=== PATIENT | male | born 1940 | race Caucasian/White ===

== ENCOUNTER → 2018-02-19 | Day surgery (SDC) | payer MEDICARE, OTHER ==
[2018-02-07 13:05] LABS: BASOPHILS # (AUTO) 0.1 (0.0-0.1); EOSINOPHILS # (AUTO) 0.3 (0.0-0.4); EOSINOPHILS % 5.4 % (0.0-6.0); HEMOGLOBIN 13.7 g/dL (14.0-18.0); LYMPHOCYTES # (AUTO) 1.6 (1.0-3.2); LYMPHOCYTES % 31.1 % (18.0-39.1); MEAN CORPUSCULAR HEMOGLOBIN 31.9 pg (28-32); MEAN CORPUSCULAR HGB CONC 33.4 g/dL (31-35); MEAN CORPUSCULAR VOLUME 95.3 fL (81-99); MONOCYTES # (AUTO) 0.6 (0.2-0.8); NEUTROPHILS # (AUTO) 2.6 (2.1-6.9); NEUTROPHILS % 51.3 % (38.7-80.0); PLATELET COUNT 157 x10e3/uL (140-360)
--- NOTE | 2018-02-07 13:26 | Diagnostic Imaging Report ---
EXAMINATION: PA and lateral views of the chest. COMPARISON: None CLINICAL HISTORY: Preoperative study for right inguinal hernia repair DISCUSSION: The lungs are well expanded. Linear opacity in the left lung base compatible with scar or subsegmental atelectasis. No consolidation, pleural effusion, or pneumothorax. Cardiomediastinal contour is notable for coronary artery stent. Normal heart size. No pulmonary edema. No acute osseous abnormality. IMPRESSION: No acute cardiopulmonary abnormality. Signed by: Dr. Mt Oleary M.D. on 02/07/2018 1:23 PM
[2018-02-07 13:33] LABS: ALBUMIN 3.8 g/dL (3.5-5.0); ALBUMIN/GLOBULIN RATIO 1.2 (0.8-2.0); ANION GAP 12.1 mmol/L (8-16); CALCIUM 9.7 mg/dL (8.4-10.2); CREATININE, SERUM 1.7 mg/dL (0.72-1.25); POTASSIUM 4.1 mmol/L (3.5-5.1)
[~2018-02-19] MED LIST: ACETAMINOPHEN 1000 MG/100 ML IV ONE; ALLOPURINOL300 MG PO; ARMOUR THYROID60 MG PO; ASPIR 8181 MG PO; BUPIVACAINE HCL 0.5% INJ 30 ML VIAL INJ ONE; CEFAZOLIN SOD 1 GM VIAL ONE; CRANBERRY500 MG PO; DEXAMETHASONE SOD PHOS INJ 4 MG/ML VIAL ONE; FENTANYL CITRATE/PF 100MCG/2 ML INJ ONE; FISH OIL 1,0001 EAC2 PO; FOLIC ACID PO; GLUCOTEN CAPLE1 EACH PO; IBUPROFEN200 MG PO; INDOMETHACIN25 MG PO; LIDOCAINE HCL 2% LOCAL INJ 5 ML SDV VIAL INJ ONE; ONDANSETRON HCL INJ 2 MG/ML VIAL ONE; POTASSIUM GLUCO99 M1 PO; PROPOFOL IV EMULSION 10 MG/ML 20 ML VIAL ONE; SAW PALMETTO450 MG PO; SEVOFLURANE INHAL SOLN 250 ML PEN BTL ONE; VIT C PO; VIT E PO
--- OUTSIDE RECORDS SUMMARY | 2018-02-19 14:46 | XMS REPORT ---
Author Author [facility] Address Unknown Phone Unavailable Care Team Providers Care Immigration Coordinator Name Role Phone Gee MCKEON Unavailable Unavailable Kassi Fletcher Unavailable Unavailable Problems This patient has no known problems. Allergies, Adverse Reactions, Alerts This patient has no known allergies or adverse reactions. Medications This patient has no known medications. Results Test Description Test Time Test Comments Text Results Atomic Results Result Comments CHEST 2 VIEWS 2018-02-07 13:20:00 [place] [address] Patient Name: CORAL LICEA JR MR #: [id number] : 1940 Age/Sex: 77/M [id number] Req #: [id number] Adm Physician: Ordered by: GARRETT MCKEON MD Report #: [id number] Location: OR Room/Bed: Procedure: [id number] DX/CHEST 2 VIEWS Exam Date: Exam Time: REPORT STATUS: Signed EXAMINATION: PA and lateral views of the chest. COMPARISON: None CLINICAL HISTORY: Preoperative study for right inguinal hernia repair DISCUSSION: The lungs are well expanded. Linear opacity in the left lung base compatible with scar or subsegmental atelectasis. No consolidation, pleural effusion, or pneumothorax. Cardiomediastinal contour is notable for coronary artery stent. Normal heart size. No pulmonary edema. No acute osseous abnormality. IMPRESSION: No acute cardiopulmonary abnormality. Signed by: Dr. Garrett Mar M.D. on 02/07/2018 1:23 PM Dictated By: GARRETT MAR MD 22 Transcribed By: MAXIMO on 02/07/181322 COPY TO: GARRETT MCKEON MD Chemistry - Specials 2016-10-26 16:21:00 Chemistry - Specials (test code=FT4) 0.76 ng/dL 0.70-1.48 @Verify Order - A T4 or FT4 [id number] - [id number] 16:21:00* Test Item Value Reference Range Comments Chemistry - Specials (test code=TSH3) 1.1200 uIU/mL 0.35-4.94 @Verify Order - A T4 or FT4 [id number] - [id number] 13:00:00* Test Item Value Reference Range Comments Chemistry - Specials (test code=FT4) 0.64 ng/dL 0.70-1.48 @Verify Order - A T4 or FT4 [id number] - [id number] 13:00:00* Test Item Value Reference Range Comments Chemistry - Specials (test code=TSH3) 6.8471 uIU/mL 0.35-4.94 @Verify Order - A T4 or FT4 [id number] 12:44:00* Test Item Value Reference Range Comments Chemistry (test code=NA-T) 142 mmol/L 136-145 Chemistry (test code=K-T) 4.3 mmol/L 3.5-5.1 Chemistry (test code=CL) 106 mmol/L 98-107 Chemistry (test code=CO2) 28 mmol/L 23-31 Chemistry (test code=ANGP) 12 mmol/L 10-20 Chemistry (test code=BUN) 26 mg/dL 8.4-25.7 Chemistry (test code=CREATT) 1.69 mg/dL 0.7-1.3 Chemistry (test code=EGFRMDRD) 40 Reference Range for Estimated GFR: Greater than 90 mL/min/1.73 m2NOTE:The MDRD equation has not been validated for use with theelderly (over 70 years of age), women, patien tswith serious comorbid condition or persons with extremes ofbody size, muscle mass, or nutritional status. Chemistry (test code=GLU-T) 90 mg/dL 83-110 Chemistry (test code=CA) 9.4 mg/dL 7.8-10.44 Chemistry (test code=TBILI) 0.8 mg/dL 0.2-1.2 Chemistry (test code=TP) 6.9 g/dL 5.8-8.1 NOTE: Plasma values are generally 0.3 to 0.5 g/dL higherthan serum values due to the presence of fibrinogen. Chemistry (test code=ALB) 3.9 g/dL 3.4-4.8 Chemistry (test code=GLOB) 3.0 g/dL 2.4-3.5 Chemistry (test code=AG) 1.3 g/dL 1.2-2.2 Chemistry (test code=ALP) 126 U/L 40-150 Chemistry (test code=AST) 23 U/L 5-34 Chemistry (test code=ALT) 17 U/L 0-55
--- NOTE | 2018-02-19 15:25 | Operative Report ---
DATE OF PROCEDURE: February 19, 2018 PREOPERATIVE DIAGNOSIS: Right inguinal hernia. POSTOPERATIVE DIAGNOSIS: Direct right inguinal hernia. OPERATIVE PROCEDURE: Repair of right inguinal hernia with mesh. ANESTHESIA: General. INDICATIONS: This is a 77-year-old male with chronic history of enlarging right inguinal hernia with frequent incarceration requiring manual reduction. Patient had consented for repair of right inguinal hernia with all attendant risks discussed. PROCEDURE FINDINGS: Large direct inguinal hernia sac with omentum and intestine incarceration. DESCRIPTION OF PROCEDURE: The patient was brought to the OR and intubated. Abdomen was prepped with alcohol and draped in a sterile fashion. A right inguinal incision was made extending through skin and subcutaneous tissue. External oblique fascia was opened toward the external ring. The underlying internal oblique muscle was split and preperitoneal space entered. The hernia was manually reduced from below. The hernia sac was from the spermatic cord to the level of the iliac crest. Excess hernia sac was twisted and suture ligated with 2-0 Vicryl stitch tie, and the distal sac was removed. We then prepared the preperitoneal space for placement of a 5 x 6 inch Marlex mesh covering all the direct, indirect and femoral space. The mesh was anchored to Moses ligament with an interrupted stitch of 2-0 Prolene suture. Anteriorly, the mesh was anchored to the overlying transversalis fascia and transversus abdominis muscle with interrupted 2-0 Prolene stitch. Operative field was irrigated and hemostasis achieved. External oblique fascia repaired with running 2-0 Prolene. Everardo layer is approximated with interrupted 3-0 Vicryl and skin closed with subcuticular stitch. Patient was extubated and transported to the recovery room. Estimated blood loss was 10 mL. Job#: [id number]
[2018-02-19 16:00] VITALS: BP 167/90
== END | disposition home or self-care (01) ==
LOC: OR 10:30
PROVIDERS: ATTEND Surgery
DX: K40.30 Unilateral inguinal hernia, with obstruction, without gangrene, not specified as recurrent (principal); J45.909 Unspecified asthma, uncomplicated; I25.10 Atherosclerotic heart disease of native coronary artery without angina pectoris; E03.9 Hypothyroidism, unspecified; I12.9 Hypertensive chronic kidney disease with stage 1 through stage 4 chronic kidney disease, or unspecified chronic kidney disease; N18.9 Chronic kidney disease, unspecified; K21.9 Gastro-esophageal reflux disease without esophagitis; Z01.810 Encounter for preprocedural cardiovascular examination; Z01.812 Encounter for preprocedural laboratory examination; Z01.818 Encounter for other preprocedural examination; Z79.82 Long term (current) use of aspirin
CPT/HCPCS: 36415; 49507; 71046; 80053; 85025; 88302; 93005; C1781; J0690; J1100; J2001; J2405

== ENCOUNTER 2019-04-10 19:28 | Emergency (ER) | payer MEDICARE, OTHER ==
[~2019-04-10] VITALS: Ht 182.9 cm; Wt 90.7 kg
[~2019-04-10 19:28] MED LIST changes: -ACETAMINOPHEN 1000 MG/100 ML IV ONE; -BUPIVACAINE HCL 0.5% INJ 30 ML VIAL INJ ONE; -CEFAZOLIN SOD 1 GM VIAL ONE; -DEXAMETHASONE SOD PHOS INJ 4 MG/ML VIAL ONE; -FENTANYL CITRATE/PF 100MCG/2 ML INJ ONE; -LIDOCAINE HCL 2% LOCAL INJ 5 ML SDV VIAL INJ ONE; -ONDANSETRON HCL INJ 2 MG/ML VIAL ONE; -PROPOFOL IV EMULSION 10 MG/ML 20 ML VIAL ONE; -SEVOFLURANE INHAL SOLN 250 ML PEN BTL ONE
[2019-04-10] MEDS ORDERED: KEFLEX500 MG PO (20:44)
--- NOTE | 2019-04-10 21:51 | Diagnostic Imaging Report ---
EXAM: Left Lower Extremity Venous Duplex Ultrasound INDICATION: Pain. COMPARISON: None TECHNIQUE: Perales scale, color Doppler and spectral waveform analysis of the left lower extremity deep venous system was performed. FINDINGS: Common Femoral: Fully compressible with normal spontaneous waveforms. Proximal Greater Saphenous: Fully compressible. Femoral: Fully compressible with normal spontaneous waveforms. Normal response to augmentation. Proximal Deep Femoral: Normal spontaneous waveforms. Popliteal: Fully compressible with normal spontaneous waveforms. IMPRESSION: No evidence of deep venous thrombosis above the left calf. Signed by: Dr. Shawn Luu MD on 04/10/2019 9:48 PM
== END 2019-04-10 22:06 | disposition home or self-care (01) ==
LOC: FSED 19:28
DX: M79.662 Pain in left lower leg (principal); L03.116 Cellulitis of left lower limb
CPT/HCPCS: 93971; 99283

== ENCOUNTER → 2021-07-21 | Day surgery (SDC) | payer MEDICARE, OTHER ==
[2021-07-19 11:58] LABS: BASOPHILS # (AUTO) 0.1 (0.0-0.1); BASOPHILS % 1.1 % (0.0-1.0); EOSINOPHILS # (AUTO) 0.5 (0.0-0.4); EOSINOPHILS % 7.4 % (0.0-6.0); HEMATOCRIT 36.3 % (38.2-49.6); HEMOGLOBIN 11.9 g/dL (14.0-18.0); LYMPHOCYTES # (AUTO) 1.6 (1.0-3.2); LYMPHOCYTES % 26.1 % (18.0-39.1); MEAN CORPUSCULAR HGB CONC 32.8 g/dL (31-35); MEAN CORPUSCULAR VOLUME 100.6 fL (81-99); MONOCYTES # (AUTO) 0.7 (0.2-0.8); MONOCYTES % 10.9 % (4.4-11.3); NEUTROPHILS # (AUTO) 3.4 (2.1-6.9); NEUTROPHILS % 54.2 % (38.7-80.0); PLATELET COUNT 131 x10e3/uL (140-360); RED BLOOD COUNT 3.61 x10e6/uL (4.3-5.7); RED CELL DISTRIBUTION WIDTH 14.5 % (11.7-14.4)
[2021-07-19 12:15] LABS: ANION GAP 8.9 mmol/L (8-16); CALCIUM 9.5 mg/dL (8.4-10.2); CREATININE, SERUM 1.71 mg/dL (0.72-1.25); POTASSIUM 4.9 mmol/L (3.5-5.1)
[~2021-07-21] MED LIST changes: +ATORVASTATIN CA20 MG PO; +BALANCED SALT SOLN (OPTH) 15 ML BTL IO ONE; +BUPIVACAINE HC 0.75% PF 10ML VIAL INJ ONE; +CYCLOPENTOLATE HCL 2% OPTH SOLN 2 ML BTL OP ONE; +ELIQUIS5 MG PO; +EPINEPHRINE HCL 1:1000 1ML 1 MG/ML AMP ONE; +FENTANYL CITRATE/PF 100MCG/2 ML INJ ONE; +GATIFLOXACIN(OPTH) 5 ML LIQD ONE; +KEFLEX500 MG PO; +LIDOCAINE 2% /EPINEPHRINE 20 ML SDV INJ ONE; +LIDOCAINE HCL-PF 4% 40 MG/1 ML 5ML AMP ONE; +METOPROLOL TART50 MG PO; +MIDAZOLAM HCL 2 MG/2 ML VIAL ONE; +NITROGLYCERIN0.4 MG SL; +PHENYLEPHRINE HCL 2 ML DROPS ONE; +PILOCARPINE HCL(OPTH) 15 ML LIQD ONE; +POVIDONE IODINE 0.05% 0.05 % ML PO ONE; +POVIDONE IODINE 5% (OPTH) 30 ML BTL ONE; +PROPOFOL IV EMULSION 10 MG/ML 20 ML VIAL ONE; +TOBRAMYCIN/DEXAMETHASONE(OPTH) 3.5 GM TUBE ONE; +[UNRECOGNIZED DRUG - OTHER] PO
[2021-07-21 11:21] VITALS: BP 132/82
== END | disposition home or self-care (01) ==
LOC: OR 08:06
PROVIDERS: ATTEND Ophthalmology
DX: H25.12 Age-related nuclear cataract, left eye (principal); I25.810 Atherosclerosis of coronary artery bypass graft(s) without angina pectoris; I11.0 Hypertensive heart disease with heart failure; I50.9 Heart failure, unspecified; E11.9 Type 2 diabetes mellitus without complications; E03.9 Hypothyroidism, unspecified; J45.909 Unspecified asthma, uncomplicated; Z01.810 Encounter for preprocedural cardiovascular examination; Z01.812 Encounter for preprocedural laboratory examination; Z20.822 Contact with and (suspected) exposure to COVID-19; Z79.02 Long term (current) use of antithrombotics/antiplatelets; Z79.82 Long term (current) use of aspirin; Z79.899 Other long term (current) drug therapy; Z95.810 Presence of automatic (implantable) cardiac defibrillator; Z95.1 Presence of aortocoronary bypass graft
CPT/HCPCS: 36415 ×2; 66984; 80048; 82948; 85025; 93005; J0171; J2001; J2250; J2704; J3010; U0002

== ENCOUNTER → 2022-02-02 | Day surgery (SDC) | payer MEDICARE, OTHER ==
[2022-01-31 10:35] LABS: BASOPHILS # (AUTO) 0.1 (0.0-0.1); BASOPHILS % 0.9 % (0.0-1.0); EOSINOPHILS # (AUTO) 0.5 (0.0-0.4); EOSINOPHILS % 8.3 % (0.0-6.0); HEMATOCRIT 41.6 % (38.2-49.6); HEMOGLOBIN 13.6 g/dL (14.0-18.0); LYMPHOCYTES # (AUTO) 1.6 (1.0-3.2); LYMPHOCYTES % 26.9 % (18.0-39.1); MEAN CORPUSCULAR HEMOGLOBIN 33.6 pg (28-32); MEAN CORPUSCULAR HGB CONC 32.7 g/dL (31-35); MEAN CORPUSCULAR VOLUME 102.7 fL (81-99); MONOCYTES # (AUTO) 0.6 (0.2-0.8); MONOCYTES % 10.4 % (4.4-11.3); NEUTROPHILS # (AUTO) 3.1 (2.1-6.9); NEUTROPHILS % 53.2 % (38.7-80.0); PLATELET COUNT 120 x10e3/uL (140-360); RED BLOOD COUNT 4.05 x10e6/uL (4.3-5.7); RED CELL DISTRIBUTION WIDTH 14.5 % (11.7-14.4)
[2022-01-31 11:11] LABS: ANION GAP 12.4 mmol/L (8-16); CALCIUM 9.2 mg/dL (8.4-10.2); CREATININE, SERUM 1.68 mg/dL (0.72-1.25); POTASSIUM 4.4 mmol/L (3.5-5.1)
[~2022-02-02] MED LIST changes: -FENTANYL CITRATE/PF 100MCG/2 ML INJ ONE; -LIDOCAINE 2% /EPINEPHRINE 20 ML SDV INJ ONE; +LIDOCAINE HCL 2% LOCAL INJ 5 ML SDV VIAL INJ ONE; -MIDAZOLAM HCL 2 MG/2 ML VIAL ONE; -PILOCARPINE HCL(OPTH) 15 ML LIQD ONE; +POTASSIUM GLUCO99 MG PO; +VITAMIN C1000 MG PO; +VITAMIN E1000 UNI1 PO
[2022-02-02 14:23] VITALS: BP 140/88
== END | disposition home or self-care (01) ==
LOC: OR 09:16
PROVIDERS: ATTEND Ophthalmology
DX: H25.11 Age-related nuclear cataract, right eye (principal); E03.9 Hypothyroidism, unspecified; F41.9 Anxiety disorder, unspecified; I13.10 Hypertensive heart and chronic kidney disease without heart failure, with stage 1 through stage 4 chronic kidney disease, or unspecified chronic kidney disease; N18.9 Chronic kidney disease, unspecified; J45.909 Unspecified asthma, uncomplicated; Z95.1 Presence of aortocoronary bypass graft; Z95.810 Presence of automatic (implantable) cardiac defibrillator; Z01.810 Encounter for preprocedural cardiovascular examination; Z01.812 Encounter for preprocedural laboratory examination
CPT/HCPCS: 36415; 66984; 80048; 85025; 93005; J0171; J2001; J2704; V2632